=== PATIENT | female | born 1975 | race Caucasian/White ===

== ENCOUNTER 2022-05-23 08:46 | Day surgery (SDC) | payer BC ==
[2022-05-10 15:43] VITALS: BMI 24.3
[2022-05-23] MEDS ORDERED: PROPOFOL 40 ML ONE (11:25)
[2022-05-23] MEDS ORDERED: DEXAMETHASONE SOD PHOSPHATE 4 MG/1 ML VIAL ONE (11:25)
[2022-05-23] MEDS ORDERED: ceFAZolin SODIUM 1 GM VIAL ONE (11:25)
[2022-05-23] MEDS ORDERED: KETOROLAC TROMETHAMINE 30 MG/1 ML VIAL ONE (11:25)
[2022-05-23] MEDS ORDERED: ONDANSETRON 4 MG/2 ML VIAL ONE ×2 (11:25→13:14)
[2022-05-23] MEDS ORDERED: SUCCINYLCHOLINE CHLORIDE 200 MG/10 ML SYRINGE ONE (11:26)
[2022-05-23] MEDS ORDERED: MIDAZOLAM HCL 2 MG/2 ML SINGLE DOSE VIAL ONE (11:26)
[2022-05-23] MEDS ORDERED: ONDANSETRON 4 MG/2 ML VIAL IVPUSH PRN (11:35)
[2022-05-23] MEDS ORDERED: oxyCODONE HCL 5 MG TABLET PO PRN (11:35)
[2022-05-23] MEDS ORDERED: PROMETHAZINE HCL 25 MG/1 ML VIAL IVPUSH PRN (11:35)
[2022-05-23] MEDS ORDERED: BUPIVACAINE HCL/PF 0.25% (2.5MG/ML) 10 ML VIAL ONE (11:44)
[2022-05-23] MEDS ORDERED: TRIAMCINOLONE ACET 40MG/1ML VIAL ONE ×2 (11:44→11:49)
[2022-05-23] MEDS ORDERED: EPINEPHrine 1:1,000 1,000 MCG/ML ML ONE (11:45)
[2022-05-23] MEDS ORDERED: TIZANIDINE HCL 4 MG TABLET PO PRN (12:59)
[2022-05-23] MEDS ORDERED: PATIENT'S OWN MEDICATION (NON-FORMULARY) (Galcanezumab-Gnlm [Emgality Pen] 120 MG/ML Pen.I SQ SCH (13:00)
[2022-05-23] MEDS ORDERED: FENTANYL CITRATE/PF 50 MCG/ML VIAL ONE ×2 (13:00→13:14)
[2022-05-23] MEDS ORDERED: PATIENT'S OWN MEDICATION (NON-FORMULARY) (Rimegepant Sulfate [Nurtec Odt] 75 MG Tab.Rapdis PO SCH (13:00)
[2022-05-23] MEDS ORDERED: METAXALONE 400 MG PO SCH (13:00)
[2022-05-23 13:47] VITALS: TEMP 97
[2022-05-23 14:57] VITALS: BP 126/74; PULSE 72; RESP 18
[2022-05-23] MEDS ORDERED: DILTIAZEM HCL 120 MG PO SCH (22:00)
[2022-05-23] MEDS ORDERED: PATIENT'S OWN MEDICATION (NON-FORMULARY) (Zolpidem Tartrate [Ambien Cr] 12.5 MG Tab.Mphase PO SCH (22:00)
[2022-05-23] MEDS ORDERED: PATIENT'S OWN MEDICATION (NON-FORMULARY) (Clonazepam [Klonopin] 1 MG Tablet) PO SCH (22:00)
[2022-05-24] MEDS ORDERED: PATIENT'S OWN MEDICATION (NON-FORMULARY) (Clonidine Hcl [Clonidine Hcl] 0.2 MG Tablet) PO SCH (10:00)
== END 2022-05-23 15:00 | disposition home or self-care (01) ==
LOC: FASU 08:46
PROVIDERS: ATTEND Orthopaedic Surgery Orthopaedic Surgery of the Spine
PROC: 0SCC4ZZ Extirpation of Matter from Right Knee Joint, Percutaneous Endoscopic Approach (ICD-10-PCS; principal; 2022-05-23 12:26)
DX: M23.41 Loose body in knee, right knee (principal); M65.9 Synovitis and tenosynovitis, unspecified; M94.261 Chondromalacia, right knee
CPT/HCPCS: 84703; 94760

== ENCOUNTER 2023-06-05 09:05 | Day surgery (SDC) | payer BC, OTHER ==
[2023-05-24 16:49] VITALS: BMI 24.5
[2023-06-05] MEDS ORDERED: MIDAZOLAM HCL 2 MG/2 ML SINGLE DOSE VIAL ONE ×3 (10:13→12:36)
[2023-06-05] MEDS ORDERED: PROPOFOL 20 ML ONE ×5 (10:13→14:25)
[2023-06-05] MEDS ORDERED: METAXALONE 400 MG PO PRN (11:19)
[2023-06-05] MEDS ORDERED: BUPIVACAINE HCL/PF 0.5% (5 MG/ML) 30 ML VIAL IJ ONE (11:19)
[2023-06-05] MEDS ORDERED: BUPIVACAINE LIPOSOME/PF (EXPAREL) 266 MG/20 ML VIAL ONE (11:19)
[2023-06-05] MEDS ORDERED: PATIENT'S OWN MEDICATION (NON-FORMULARY) (Tizanidine Hcl [Tizanidine Hcl] 4 MG Tablet) PO PRN (11:19)
[2023-06-05] MEDS ORDERED: PATIENT'S OWN MEDICATION (NON-FORMULARY) (Clonazepam [Klonopin] 1 MG Tablet) PO SCH (11:30)
[2023-06-05] MEDS ORDERED: ZOLPIDEM TARTRATE 5 MG TABLET PO PRN (12:08)
[2023-06-05] MEDS ORDERED: BUPIVACAINE HCL/PF 0.5% (5MG/ML) 10 ML VIAL ONE (12:13)
[2023-06-05] MEDS ORDERED: TRANEXAMIC ACID 1000 MG/10 ML VIAL ONE (13:44)
[2023-06-05] MEDS ORDERED: ceFAZolin SODIUM 1 GM VIAL ONE (14:53)
[2023-06-05] MEDS ORDERED: oxyCODONE HCL 5 MG TABLET PO PRN (15:15)
[2023-06-05] MEDS ORDERED: ONDANSETRON 4 MG/2 ML VIAL IVPUSH PRN ×2 (15:15→15:17)
[2023-06-05] MEDS ORDERED: MAG HYDROX/AL HYDROX/SIMETH 30 ML UNIT-DOSE CUP PO PRN (15:17)
[2023-06-05] MEDS ORDERED: MAGNESIUM HYDROX 2400MG/30ML ORAL SUSPENSION 30 ML CUP PO PRN (15:17)
[2023-06-05] MEDS ORDERED: LACTATED RINGERS SOLUTION 1,000 ML IV SCH (15:30)
[2023-06-05] MEDS: oxyCODONE HCL 5 MG TABLET PO PRN (17:46)
[2023-06-05] MEDS ORDERED: ACETAMINOPHEN 1000 MG/100 ML BAG IVPB ONE (18:00)
[2023-06-05] MEDS: KETOROLAC TROMETHAMINE 30 MG/1 ML VIAL IVPUSH SCH (18:55)
[2023-06-05] MEDS ORDERED: HYDROmorphone HCl 2 MG/ML VIAL IVPB ONE (20:00)
[2023-06-05] MEDS: CEFAZOLIN SODIUM 2 GM in DEXTROSE 5%-WATER 100 ML IVPB SCH (20:29)
[2023-06-05] MEDS: CELECOXIB 200 MG CAPSULE PO SCH (21:15)
[2023-06-05] MEDS: SENNOSIDES/DOCUSATE COMBO (SENNA PLUS) TABLET (UD) PO SCH (21:20)
[2023-06-05] MEDS: ASPIRIN COATED 81 MG TABLET.EC PO SCH (21:24)
[2023-06-05] MEDS: LACTATED RINGERS SOLUTION 1,000 ML IV SCH (21:25)
[2023-06-05] MEDS ORDERED: PATIENT'S OWN MEDICATION (NON-FORMULARY) (Zolpidem Tartrate [Ambien Cr] 12.5 MG Tab.Mphase PO SCH (22:00)
[2023-06-05] MEDS ORDERED: oxyCODONE HCL 10 MG SUSTAINED ACTING TABLET PO SCH (22:00)
[2023-06-06] MEDS: KETOROLAC TROMETHAMINE 30 MG/1 ML VIAL IVPUSH SCH ×3 (00:39→18:46)
[2023-06-06] MEDS: ACETAMINOPHEN 500 MG TABLET (FP) PO SCH ×4 (00:40→22:12)
[2023-06-06] MEDS: oxyCODONE HCL 5 MG TABLET PO PRN ×6 (00:41→20:40)
[2023-06-06] MEDS: CEFAZOLIN SODIUM 2 GM in DEXTROSE 5%-WATER 100 ML IVPB SCH ×2 (01:10→07:58)
[2023-06-06] MEDS ORDERED: clonazePAM 0.5 MG TABLET PO PRN (07:18)
[2023-06-06] MEDS ORDERED: ZOLPIDEM TARTRATE 5 MG TABLET PO PRN ×2 (07:21→07:28)
[2023-06-06] MEDS ORDERED: CYCLOBENZAPRINE HCL 10 MG TABLET (FP) PO PRN (07:41)
[2023-06-06 08:12] LABS: HEMATOCRIT 31.2 % (32.4-45.2); HEMOGLOBIN 10.2 G/dL (10.7-15.3); MCH 31.2 pg (25.7-33.7); MCHC 32.6 g/dl (32.0-36.0); MEAN CELL VOLUME 95.7 fl (80-96); RBC 3.26 10^6/uL (3.60-5.2); RDW 13.8 % (11.6-15.6); WHITE BLOOD COUNT 9.1 10^3/uL (4.0-10.8)
[2023-06-06 08:58] LABS: BLOOD UREA NITROGEN 9.2 mg/dl (7-18); CALCIUM 8.3 mg/dl (8.5-10.1); CREATININE 0.5 mg/dl (0.6-1.3); POTASSIUM 3.8 mmol/L (3.5-5.1)
[2023-06-06] MEDS: SENNOSIDES/DOCUSATE COMBO (SENNA PLUS) TABLET (UD) PO SCH ×2 (09:05→22:13)
[2023-06-06] MEDS: oxyCODONE HCL 10 MG SUSTAINED ACTING TABLET PO SCH ×2 (09:05→22:10)
[2023-06-06] MEDS: PANTOPRAZOLE 40 MG TABLET PO SCH (09:05)
[2023-06-06] MEDS: SERTRALINE HCL 50 MG TABLET (FP) PO SCH (09:06)
[2023-06-06] MEDS: ASPIRIN COATED 81 MG TABLET.EC PO SCH ×2 (09:06→22:10)
[2023-06-06] MEDS: cloNIDine HCL 0.1 MG TABLET PO SCH (11:36)
[2023-06-06] MEDS ORDERED: HYDROmorphone HCL/PF 1 MG/ML VIAL IVPB PRN (12:22)
[2023-06-06] MEDS ORDERED: oxyCODONE HCL 5 MG TABLET PO PRN (12:23)
[2023-06-06] MEDS: LACTATED RINGERS SOLUTION 1,000 ML IV SCH (20:32)
[2023-06-07] MEDS: oxyCODONE HCL 5 MG TABLET PO PRN ×2 (02:32→06:40)
[2023-06-07] MEDS: KETOROLAC TROMETHAMINE 30 MG/1 ML VIAL IVPUSH SCH (02:33)
[2023-06-07 08:27] LABS: MCH 31.6 pg (25.7-33.7); MCHC 33.3 g/dl (32.0-36.0); MEAN CELL VOLUME 94.8 fl (80-96); MEAN PLT VOLUME 9.1 fl (7.5-11.1); PLATELET COUNT 157.8 10^3/uL (134-434); RBC 2.53 10^6/uL (3.60-5.2); RDW 12.9 % (11.6-15.6); WHITE BLOOD COUNT 7.9 10^3/uL (4.0-10.8)
[2023-06-07 09:22] LABS: BLOOD UREA NITROGEN 14.6 mg/dl (7-18); CREATININE 0.6 mg/dl (0.6-1.3); POTASSIUM 3.7 mmol/L (3.5-5.1)
[2023-06-07] MEDS: SENNOSIDES/DOCUSATE COMBO (SENNA PLUS) TABLET (UD) PO SCH ×2 (09:22→21:50)
[2023-06-07] MEDS: CELECOXIB 200 MG CAPSULE PO SCH ×2 (09:22→21:51)
[2023-06-07] MEDS: PANTOPRAZOLE 40 MG TABLET PO SCH (09:23)
[2023-06-07] MEDS: SERTRALINE HCL 50 MG TABLET (FP) PO SCH (09:23)
[2023-06-07] MEDS: ASPIRIN COATED 81 MG TABLET.EC PO SCH ×2 (09:23→21:50)
[2023-06-07] MEDS: ACETAMINOPHEN 325 MG TABLET (FP) PO SCH ×3 (09:30→21:50)
[2023-06-07] MEDS: cloNIDine HCL 0.1 MG TABLET PO SCH (09:51)
[2023-06-07] MEDS ORDERED: RIMEGEPANT SULFATE 75 MG TAB.RAPDIS SL SCH (10:00)
[2023-06-07] MEDS: HYDROmorphone HCL 2 MG TABLET PO PRN ×2 (13:02→21:51)
[2023-06-07] MEDS ORDERED: DEXAMETHASONE 4 MG TABLET (FP) PO SCH (23:00)
[2023-06-08] MEDS: ACETAMINOPHEN 325 MG TABLET (FP) PO SCH ×2 (04:33→09:37)
[2023-06-08 06:10] VITALS: BP 122/65; TEMP 98.3
[2023-06-08] MEDS: HYDROmorphone HCL 2 MG TABLET PO PRN ×2 (06:13→12:00)
[2023-06-08 06:34] VITALS: PULSE 74; RESP 16
[2023-06-08 09:23] LABS: HEMATOCRIT 21.7 % (32.4-45.2); HEMOGLOBIN 7.4 G/dL (10.7-15.3); MCH 32.2 pg (25.7-33.7); MEAN CELL VOLUME 94.9 fl (80-96); MEAN PLT VOLUME 9.5 fl (7.5-11.1); PLATELET COUNT 139.8 10^3/uL (134-434); RBC 2.29 10^6/uL (3.60-5.2); RDW 13.5 % (11.6-15.6); WHITE BLOOD COUNT 5.4 10^3/uL (4.0-10.8)
[2023-06-08] MEDS: ASPIRIN COATED 81 MG TABLET.EC PO SCH (09:39)
[2023-06-08] MEDS: SENNOSIDES/DOCUSATE COMBO (SENNA PLUS) TABLET (UD) PO SCH (09:39)
[2023-06-08] MEDS: SERTRALINE HCL 50 MG TABLET (FP) PO SCH (09:39)
[2023-06-08] MEDS: CELECOXIB 200 MG CAPSULE PO SCH (09:39)
[2023-06-08] MEDS: PANTOPRAZOLE 40 MG TABLET PO SCH (09:39)
[2023-06-08] MEDS: cloNIDine HCL 0.1 MG TABLET PO SCH (09:40)
[2023-06-08 09:44] LABS: BLOOD UREA NITROGEN 12.8 mg/dl (7-18); CREATININE 0.4 mg/dl (0.6-1.3); POTASSIUM 3.8 mmol/L (3.5-5.1)
[2023-06-10] MEDS ORDERED: PATIENT'S OWN MEDICATION (NON-FORMULARY) (Galcanezumab-Gnlm [Emgality Pen] 120 MG/ML Pen.I SQ SCH (10:00)
== END 2023-06-08 14:06 | disposition home or self-care (01) ==
LOC: FASU 09:05 → FASUSAT 09:05 → FM/S 16:57 → FASUSAT 06-08 14:06
PROVIDERS: ATTEND Orthopaedic Surgery Orthopaedic Surgery of the Spine
PROC: 0MNN0ZZ Release Right Knee Bursa and Ligament, Open Approach (ICD-10-PCS; 2023-06-05)
PROC: 0SBC0ZX Excision of Right Knee Joint, Open Approach, Diagnostic (ICD-10-PCS; 2023-06-05)
PROC: 0SRC0J9 Replacement of Right Knee Joint with Synthetic Substitute, Cemented, Open Approach (ICD-10-PCS; principal; 2023-06-05 12:45)
DX: M17.11 Unilateral primary osteoarthritis, right knee (principal); M17.31 Unilateral post-traumatic osteoarthritis, right knee
CPT/HCPCS: 27330; 27425; 27447; C1776; 36415; 73560-TC-RT-FY; 80048; 81025; 85027; 88305-TC; 88311-TC; 94760; 97010-GP; 97116-GP; 97162-GP; C1713; C1889

== ENCOUNTER 2023-06-14 15:43 | Inpatient (IN) | payer BC, OTHER ==
[2023-06-14] MEDS ORDERED: ACETAMINOPHEN 1000 MG/100 ML BAG IVPB ONE ×2 (16:10→18:53)
[2023-06-14 16:22] VITALS: BMI 24.3
[2023-06-14] MEDS ORDERED: ACETAMINOPHEN INJECTION 100 ML IVPB ONE (16:23)
[2023-06-14] MEDS ORDERED: MIDAZOLAM HCL 2 MG/2 ML SINGLE DOSE VIAL ONE (16:29)
[2023-06-14] MEDS ORDERED: PROPOFOL 20 ML ONE ×2 (16:29→17:09)
[2023-06-14] MEDS ORDERED: LIDOCAINE HCL/PF 2% SDV 5ML VIAL ONE (16:29)
[2023-06-14 16:42] LABS: HEMATOCRIT 30.7 % (32.4-45.2); HEMOGLOBIN 9.9 G/dL (10.7-15.3); MCHC 32.2 g/dl (32.0-36.0); MEAN CELL VOLUME 96.2 fl (80-96); MEAN PLT VOLUME 8.3 fl (7.5-11.1); PLATELET COUNT 436.9 10^3/uL (134-434); RBC 3.19 10^6/uL (3.60-5.2); RDW 14.4 % (11.6-15.6); WHITE BLOOD COUNT 15.1 10^3/uL (4.0-10.8)
[2023-06-14] MEDS ORDERED: DEXAMETHASONE SOD PHOSPHATE 4 MG/1 ML VIAL ONE (17:05)
[2023-06-14] MEDS ORDERED: VANCOMYCIN 1,000 MG VIAL (RESTRICTED TO ID ONLY) ONE (17:05)
[2023-06-14] MEDS ORDERED: ceFAZolin SODIUM 1 GM VIAL ONE (17:05)
[2023-06-14] MEDS ORDERED: HYDROmorphone HCL/PF 1 MG/ML VIAL ONE ×3 (17:35→19:04)
[2023-06-14] MEDS ORDERED: PROMETHAZINE HCL 25 MG/1 ML VIAL IVPB PRN (18:53)
[2023-06-14] MEDS ORDERED: ONDANSETRON 4 MG/2 ML VIAL IVPUSH PRN (18:53)
[2023-06-14] MEDS: HYDROmorphone HCl 2 MG/ML VIAL IVPUSH PRN ×4 (19:00→19:45)
[2023-06-14] MEDS ORDERED: ACETAMINOPHEN 1000 MG/100 ML BAG IVPB PRN (19:02)
[2023-06-14] MEDS ORDERED: DOCUSATE SODIUM 100 MG CAPSULE (FP) PO PRN (19:02)
[2023-06-14] MEDS: LACTATED RINGERS SOLUTION 1,000 ML IV SCH (19:15)
[2023-06-14] MEDS ORDERED: oxyCODONE HCL 5 MG TABLET PO PRN ×2 (19:16→21:45)
[2023-06-14] MEDS: clonazePAM 2 MG TABLET PO SCH (19:30)
[2023-06-14] MEDS: DOCUSATE SODIUM 100 MG CAPSULE (FP) PO SCH (21:30)
[2023-06-15] MEDS: CEFAZOLIN 1 GM in DEXTROSE 5%-WATER - 50 ML IVPB SCH ×2 (01:29→09:26)
[2023-06-15] MEDS ORDERED: KETOROLAC TROMETHAMINE 30 MG/1 ML VIAL IVPUSH SCH (02:00)
[2023-06-15] MEDS ORDERED: MELATONIN 1 MG TABLET PO ONE (04:30)
[2023-06-15] MEDS ORDERED: HYDROmorphone HCl 2 MG/ML VIAL IVPUSH ONE (04:30)
[2023-06-15] MEDS: DOCUSATE SODIUM 100 MG CAPSULE (FP) PO SCH ×3 (06:14→21:08)
[2023-06-15] MEDS: clonazePAM 2 MG TABLET PO SCH ×2 (06:14→14:18)
[2023-06-15] MEDS ORDERED: VANCOMYCIN/WATER FOR INJ (PEG) 1,000 MG/200 ML BAG IVPB ONE (08:00)
[2023-06-15 08:50] LABS: HEMATOCRIT 29.7 % (32.4-45.2); HEMOGLOBIN 9.6 G/dL (10.7-15.3); MCH 30.9 pg (25.7-33.7); MCHC 32.4 g/dl (32.0-36.0); MEAN CELL VOLUME 95.6 fl (80-96); MEAN PLT VOLUME 8.9 fl (7.5-11.1); PLATELET COUNT 466.9 10^3/uL (134-434); RBC 3.11 10^6/uL (3.60-5.2); RDW 13.9 % (11.6-15.6); WHITE BLOOD COUNT 18.1 10^3/uL (4.0-10.8)
[2023-06-15 08:53] LABS: ALBUMIN 3.9 g/dl (3.4-5.0); BLOOD UREA NITROGEN 9.2 mg/dl (7-18); CALCIUM 9.5 mg/dl (8.5-10.1); CREATININE 0.5 mg/dl (0.6-1.3); POTASSIUM 4.2 mmol/L (3.5-5.1); TOT PROT 6.4 g/dl (6.4-8.2)
[2023-06-15] MEDS ORDERED: ZOLPIDEM TARTRATE 5 MG TABLET PO PRN ×2 (08:58→22:00)
[2023-06-15] MEDS ORDERED: oxyCODONE HCL 5 MG TABLET PO PRN (09:28)
[2023-06-15] MEDS ORDERED: HYDROmorphone HCl 2 MG/ML VIAL IVPB PRN (09:41)
[2023-06-15] MEDS ORDERED: NALOXONE HCL 0.4 MG/ML VIAL IVPUSH PRN (09:43)
[2023-06-15] MEDS ORDERED: SIMETHICONE 80 MG TAB.CHEW (FP) PO PRN (09:45)
[2023-06-15] MEDS ORDERED: SERTRALINE HCL 50 MG TABLET (FP) PO SCH (10:00)
[2023-06-15] MEDS: POLYETHYLENE GLYCOL (HEALTHYLAX) 3350 17 GM PACKET PO SCH ×3 (10:32→21:05)
[2023-06-15] MEDS: GABAPENTIN 300 MG CAPSULE PO SCH ×2 (10:33→21:06)
[2023-06-15] MEDS: PANTOPRAZOLE 40 MG TABLET PO SCH (10:33)
[2023-06-15] MEDS: cloNIDine HCL 0.1 MG TABLET PO SCH ×3 (10:33→23:28)
[2023-06-15 10:46] LABS: BILIRUBIN,TOTAL 0.9 mg/dL (0.2-1)
[2023-06-15] MEDS ORDERED: PATIENT'S OWN MEDICATION (NON-FORMULARY) (Tizanidine Hcl [Tizanidine Hcl] 4 MG Tablet) PO PRN (10:48)
[2023-06-15] MEDS ORDERED: ONDANSETRON 4 MG/2 ML VIAL IVPUSH PRN (10:49)
[2023-06-15] MEDS ORDERED: MAG HYDROX/AL HYDROX/SIMETH 30 ML UNIT-DOSE CUP PO PRN (10:49)
[2023-06-15] MEDS ORDERED: MAGNESIUM HYDROX 2400MG/30ML ORAL SUSPENSION 30 ML CUP PO PRN (10:49)
[2023-06-15] MEDS ORDERED: CEFAZOLIN 2 GM in DEXTROSE 5%-WATER - 50 ML IVPB SCH ×2 (11:00→16:00)
[2023-06-15] MEDS: CELECOXIB 200 MG CAPSULE PO SCH ×2 (12:14→21:07)
[2023-06-15] MEDS: RIMEGEPANT SULFATE 75 MG TAB.RAPDIS SL SCH (12:14)
[2023-06-15] MEDS: ACETAMINOPHEN 500 MG TABLET (FP) PO SCH ×2 (12:14→23:26)
[2023-06-15] MEDS ORDERED: SENNOSIDES 8.6MG TABLET (FP) PO SCH (14:00)
[2023-06-15] MEDS: clonazePAM 0.5 MG TABLET PO SCH ×2 (16:19→21:07)
[2023-06-15] MEDS: PIPERACILLIN/TAZOB 4.5 GM 4.5 GM in DEXTROSE 5%-WATER 100 ML IVPB SCH (18:12)
[2023-06-15] MEDS: SERTRALINE HCL 25 MG TABLET (FP) PO SCH (21:06)
[2023-06-15] MEDS: SENNOSIDES/DOCUSATE COMBO (SENNA PLUS) TABLET (UD) PO SCH (21:07)
[2023-06-15] MEDS: ASPIRIN COATED 81 MG TABLET.EC PO SCH (21:29)
[2023-06-15] MEDS: HYDROmorphone HCl 2 MG/ML VIAL IVPB PRN (21:29)
[2023-06-15] MEDS: LACTATED RINGERS SOLUTION 1,000 ML IV SCH (21:31)
[2023-06-15] MEDS ORDERED: CELECOXIB 200 MG CAPSULE PO SCH (22:00)
[2023-06-15] MEDS: ZOLPIDEM TARTRATE 5 MG TABLET PO PRN (23:57)
[2023-06-16] MEDS: PIPERACILLIN/TAZOB 4.5 GM 4.5 GM in DEXTROSE 5%-WATER 100 ML IVPB SCH ×3 (01:52→18:22)
[2023-06-16] MEDS: POLYETHYLENE GLYCOL (HEALTHYLAX) 3350 17 GM PACKET PO SCH ×3 (05:24→22:17)
[2023-06-16] MEDS: DOCUSATE SODIUM 100 MG CAPSULE (FP) PO SCH ×3 (05:24→23:00)
[2023-06-16] MEDS: HYDROmorphone HCl 2 MG/ML VIAL IVPB PRN ×4 (05:24→22:17)
[2023-06-16] MEDS: clonazePAM 0.5 MG TABLET PO SCH ×3 (05:24→22:12)
[2023-06-16] MEDS: SERTRALINE HCL 25 MG TABLET (FP) PO SCH ×2 (09:12→22:14)
[2023-06-16] MEDS: cloNIDine HCL 0.1 MG TABLET PO SCH ×2 (09:13→23:15)
[2023-06-16] MEDS: PANTOPRAZOLE 40 MG TABLET PO SCH (09:13)
[2023-06-16] MEDS: CELECOXIB 200 MG CAPSULE PO SCH ×2 (09:14→22:13)
[2023-06-16] MEDS: GABAPENTIN 300 MG CAPSULE PO SCH ×2 (09:16→22:13)
[2023-06-16] MEDS: ASPIRIN COATED 81 MG TABLET.EC PO SCH ×2 (09:16→22:17)
[2023-06-16] MEDS: LACTATED RINGERS SOLUTION 1,000 ML IV SCH (09:44)
[2023-06-16 09:51] LABS: ALBUMIN 3.3 g/dl (3.4-5.0); CALCIUM 8.8 mg/dl (8.5-10.1); CREATININE 0.5 mg/dl (0.6-1.3); POTASSIUM 4.4 mmol/L (3.5-5.1); SGOT/AST 12.6 U/L (15-37); SGPT/ALT 6.2 U/L (7-52); TOT PROT 5.4 g/dl (6.4-8.2)
[2023-06-16 10:19] LABS: BASO % 0.7 % (0-2.0); EOS % 2.9 % (0-4.5); HEMATOCRIT 26.3 % (32.4-45.2); HEMOGLOBIN 8.7 GM/dL (10.7-15.3); LYMPH % 31.6 % (8-40); MCH 30.4 pg (25.7-33.7); MCHC 33.1 g/dl (32.0-36.0); MEAN CELL VOLUME 91.8 fl (80-96); MEAN PLT VOLUME 8.4 fl (7.5-11.1); NEUT % 52.8 % (42.8-82.8); PLATELET COUNT 339 10^3/uL (134-434); RBC 2.86 M/mm3 (3.60-5.2); WHITE BLOOD COUNT 7.9 K/mm3 (4.0-10.0)
[2023-06-16 10:24] LABS: BILIRUBIN,TOTAL 0.8 mg/dL (0.2-1)
[2023-06-16] MEDS: SENNOSIDES/DOCUSATE COMBO (SENNA PLUS) TABLET (UD) PO SCH ×2 (11:22→22:16)
[2023-06-16] MEDS: ACETAMINOPHEN 500 MG TABLET (FP) PO SCH ×2 (11:41→23:04)
[2023-06-16] MEDS: RIMEGEPANT SULFATE 75 MG TAB.RAPDIS SL SCH (13:13)
[2023-06-16] MEDS: KETOROLAC TROMETHAMINE 30 MG/1 ML VIAL IVPUSH PRN (13:13)
[2023-06-16] MEDS: ZOLPIDEM TARTRATE 5 MG TABLET PO PRN (22:16)
[2023-06-17] MEDS: PIPERACILLIN/TAZOB 4.5 GM 4.5 GM in DEXTROSE 5%-WATER 100 ML IVPB SCH ×3 (01:46→20:38)
[2023-06-17] MEDS: clonazePAM 0.5 MG TABLET PO SCH ×3 (05:01→21:23)
[2023-06-17] MEDS: HYDROmorphone HCl 2 MG/ML VIAL IVPB PRN (05:01)
[2023-06-17] MEDS: DOCUSATE SODIUM 100 MG CAPSULE (FP) PO SCH ×3 (05:19→21:25)
[2023-06-17] MEDS: POLYETHYLENE GLYCOL (HEALTHYLAX) 3350 17 GM PACKET PO SCH ×3 (05:19→21:20)
[2023-06-17] MEDS ORDERED: HYDROmorphone HCl 2 MG/ML VIAL IVPB PRN (09:29)
[2023-06-17 09:34] LABS: HEMATOCRIT 24.8 % (32.4-45.2); HEMOGLOBIN 8.1 G/dL (10.7-15.3); MCH 31.6 pg (25.7-33.7); MCHC 32.6 g/dl (32.0-36.0); MEAN CELL VOLUME 96.8 fl (80-96); MEAN PLT VOLUME 8.7 fl (7.5-11.1); PLATELET COUNT 319.8 10^3/uL (134-434); RBC 2.56 10^6/uL (3.60-5.2); RDW 14.9 % (11.6-15.6); WHITE BLOOD COUNT 7.3 10^3/uL (4.0-10.8)
[2023-06-17] MEDS: RIMEGEPANT SULFATE 75 MG TAB.RAPDIS SL SCH ×2 (09:44→11:12)
[2023-06-17] MEDS: CELECOXIB 200 MG CAPSULE PO SCH ×2 (09:45→21:22)
[2023-06-17] MEDS: GABAPENTIN 300 MG CAPSULE PO SCH ×2 (09:45→21:23)
[2023-06-17] MEDS: PANTOPRAZOLE 40 MG TABLET PO SCH (09:45)
[2023-06-17] MEDS: SENNOSIDES/DOCUSATE COMBO (SENNA PLUS) TABLET (UD) PO SCH ×2 (09:46→21:20)
[2023-06-17] MEDS: KETOROLAC TROMETHAMINE 30 MG/1 ML VIAL IVPUSH PRN ×2 (09:46→18:00)
[2023-06-17] MEDS: ASPIRIN COATED 81 MG TABLET.EC PO SCH ×2 (09:46→21:23)
[2023-06-17] MEDS: ACETAMINOPHEN 500 MG TABLET (FP) PO SCH ×2 (11:08→22:43)
[2023-06-17] MEDS: oxyCODONE HCL 5 MG TABLET PO PRN ×3 (11:08→21:21)
[2023-06-17] MEDS: SERTRALINE HCL 25 MG TABLET (FP) PO SCH ×2 (11:13→21:29)
[2023-06-17] MEDS: cloNIDine HCL 0.1 MG TABLET PO SCH ×2 (11:14→21:24)
[2023-06-17] MEDS: LACTATED RINGERS SOLUTION 1,000 ML IV SCH (20:06)
[2023-06-17] MEDS: ZOLPIDEM TARTRATE 5 MG TABLET PO PRN (21:25)
[2023-06-18] MEDS: PIPERACILLIN/TAZOB 4.5 GM 4.5 GM in DEXTROSE 5%-WATER 100 ML IVPB SCH ×2 (01:31→09:43)
[2023-06-18] MEDS: oxyCODONE HCL 5 MG TABLET PO PRN ×4 (01:49→16:42)
[2023-06-18 01:50] VITALS: RESP 18
[2023-06-18] MEDS: POLYETHYLENE GLYCOL (HEALTHYLAX) 3350 17 GM PACKET PO SCH ×2 (06:23→13:35)
[2023-06-18] MEDS: DOCUSATE SODIUM 100 MG CAPSULE (FP) PO SCH ×2 (06:23→13:36)
[2023-06-18] MEDS: clonazePAM 0.5 MG TABLET PO SCH ×2 (06:23→13:36)
[2023-06-18 08:11] LABS: ALBUMIN 2.9 g/dl (3.4-5.0); BLOOD UREA NITROGEN 10.7 mg/dl (7-18); CALCIUM 8.3 mg/dl (8.5-10.1); CREATININE 0.6 mg/dl (0.6-1.3); POTASSIUM 4.3 mmol/L (3.5-5.1); SGOT/AST 13.7 U/L (15-37); SGPT/ALT 6.4 U/L (7-52); TOT PROT 4.6 g/dl (6.4-8.2)
[2023-06-18] MEDS: PANTOPRAZOLE 40 MG TABLET PO SCH (09:41)
[2023-06-18] MEDS: cloNIDine HCL 0.1 MG TABLET PO SCH (09:41)
[2023-06-18] MEDS: CELECOXIB 200 MG CAPSULE PO SCH (09:41)
[2023-06-18] MEDS: ASPIRIN COATED 81 MG TABLET.EC PO SCH (09:42)
[2023-06-18] MEDS: GABAPENTIN 300 MG CAPSULE PO SCH (09:42)
[2023-06-18] MEDS: SENNOSIDES/DOCUSATE COMBO (SENNA PLUS) TABLET (UD) PO SCH (09:47)
[2023-06-18] MEDS ORDERED: SERTRALINE HCL 50 MG TABLET (FP) PO SCH (10:00)
[2023-06-18 10:25] LABS: BILIRUBIN,TOTAL 0.4 mg/dL (0.2-1)
[2023-06-18] MEDS: RIMEGEPANT SULFATE 75 MG TAB.RAPDIS SL SCH (11:00)
[2023-06-18] MEDS: ACETAMINOPHEN 500 MG TABLET (FP) PO SCH (11:02)
[2023-06-18 11:28] LABS: BASO % 1.8 % (0-2.0); EOS % 6.6 % (0-4.5); HEMATOCRIT 22.8 % (32.4-45.2); HEMOGLOBIN 7.6 GM/dL (10.7-15.3); LYMPH % 27.5 % (8-40); MCH 30.8 pg (25.7-33.7); MCHC 33.4 g/dl (32.0-36.0); MEAN CELL VOLUME 92.2 fl (80-96); MEAN PLT VOLUME 8.2 fl (7.5-11.1); MONO % 11.3 % (3.8-10.2); NEUT % 52.8 % (42.8-82.8); PLATELET COUNT 294 10^3/uL (134-434); RBC 2.48 M/mm3 (3.60-5.2); RDW 13.3 % (11.6-15.6)
[2023-06-18] MEDS: KETOROLAC TROMETHAMINE 30 MG/1 ML VIAL IVPUSH PRN (14:04)
[2023-06-18 14:45] VITALS: BP 112/58; PULSE 78; TEMP 98.3
== END 2023-06-18 16:58 | disposition home or self-care (01) | DRG 909 ==
LOC: FER 15:43 → FASU 16:34 → FM/S 20:04 → FASU 06-15 12:07 → FM/S 06-15 12:11
PROVIDERS: ADMIT Orthopaedic Surgery Orthopaedic Surgery of the Spine; ATTEND Internal Medicine
PROC: 0SCC0ZZ Extirpation of Matter from Right Knee Joint, Open Approach (ICD-10-PCS; principal; 2023-06-15)
PROC: 3E10X8Z Irrigation of Skin and Mucous Membranes using Irrigating Substance (ICD-10-PCS; 2023-06-15)
PROC: 2W3QXYZ Immobilization of Right Lower Leg using Other Device (ICD-10-PCS; 2023-06-15)
DX: M96.840 Postprocedural hematoma of a musculoskeletal structure following a musculoskeletal system procedure (principal); I10 Essential (primary) hypertension; F41.8 Other specified anxiety disorders; G47.09 Other insomnia; G43.809 Other migraine, not intractable, without status migrainosus; Y83.8 Other surgical procedures as the cause of abnormal reaction of the patient, or of later complication, without mention of misadventure at the time of the procedure
CPT/HCPCS: 36415; 80053; 84703; 85025; 85027; 86850; 86900; 86901; 94760; 97116-GP; 99285-25

== ENCOUNTER 2023-07-09 19:43 | Inpatient (IN) | payer BC, OTHER ==
[2023-07-09 21:02] LABS: HEMATOCRIT 37.3 % (32.4-45.2); HEMOGLOBIN 11.6 G/dL (10.7-15.3); MCH 28.1 pg (25.7-33.7); MCHC 31.1 g/dl (32.0-36.0); MEAN CELL VOLUME 90.2 fl (80-96); MEAN PLT VOLUME 9.1 fl (7.5-11.1); RBC 4.13 10^6/uL (3.60-5.2); RDW 14.3 % (11.6-15.6); WHITE BLOOD COUNT 16.4 10^3/uL (4.0-10.8)
[2023-07-09 21:13] LABS: INR 1.21 (0.83-1.09)
[2023-07-09 21:15] VITALS: BMI 23.8
[2023-07-09 21:23] LABS: ALBUMIN 4.1 g/dl (3.4-5.0); BILIRUBIN,TOTAL 0.4 mg/dl (0.2-1); BLOOD UREA NITROGEN 19.4 mg/dl (7-18); CREATININE 0.7 mg/dl (0.6-1.3); POTASSIUM 3.8 mmol/L (3.5-5.1); SGOT/AST 12.3 U/L (15-37); SGPT/ALT 6.8 U/L (7-52); TOT PROT 5.9 g/dl (6.4-8.2)
[2023-07-09 21:32] LABS: HCG,QUALITATIVE URINE Negative
[2023-07-09 21:48] LABS: ERYTHROCYTE SEDIMENTATION RATE 4 mm/hr (0-20)
[2023-07-09] MEDS ORDERED: SODIUM CHLORIDE 1,000 ML IV ONE (22:24)
[2023-07-09 22:31] LABS: EPITHELIAL CELLS FEW /hpf; URIC ACID CRYSTALS FEW /hpf (NONE SEEN)
[2023-07-09] MEDS ORDERED: morphine CARPU-JECT 2 MG/1 ML DISP.SYRIN IVPUSH ONE (22:34)
[2023-07-09] MEDS ORDERED: PIPERACILLIN/TAZOB 4.5 GM 4.5 GM in DEXTROSE 5%-WATER 100 ML IVPB ONE (23:27)
[2023-07-09] MEDS ORDERED: PIPERACILLIN/TAZOBACTAM 4.5 GM VIAL IVPB ONE (23:31)
[2023-07-10] MEDS ORDERED: DEXTROSE 5%-0.45% SALINE 1,000 ML IV SCH
[2023-07-10 08:26] LABS: BLOOD UREA NITROGEN 18.5 mg/dl (7-18); CALCIUM 8.3 mg/dl (8.5-10.1); CREATININE 0.7 mg/dl (0.6-1.3); POTASSIUM 4.1 mmol/L (3.5-5.1)
[2023-07-10] MEDS: PIPERACILLIN/TAZOB 4.5 GM 4.5 GM in DEXTROSE 5%-WATER 100 ML IVPB SCH ×2 (09:37→18:04)
[2023-07-10 09:55] LABS: BASO % 1.3 % (0-2.0); EOS % 2.7 % (0-4.5); HEMATOCRIT 28.6 % (32.4-45.2); HEMOGLOBIN 9.6 GM/dL (10.7-15.3); LYMPH % 19.7 % (8-40); MCH 29.1 pg (25.7-33.7); MCHC 33.5 g/dl (32.0-36.0); MEAN PLT VOLUME 9.6 fl (7.5-11.1); MONO % 7.5 % (3.8-10.2); NEUT % 68.8 % (42.8-82.8); PLATELET COUNT 256 10^3/uL (134-434); RBC 3.29 M/mm3 (3.60-5.2); RDW 13.1 % (11.6-15.6); WHITE BLOOD COUNT 6.4 K/mm3 (4.0-10.0)
[2023-07-10 11:49] LABS: ERYTHROCYTE SEDIMENTATION RATE 9 mm/hr (0-20)
[2023-07-10] MEDS ORDERED: BUPIVACAINE LIPOSOME/PF (EXPAREL) 266 MG/20 ML VIAL ONE (12:26)
[2023-07-10] MEDS ORDERED: BUPIVACAINE HCL/PF 0.5% (5 MG/ML) 30 ML VIAL IJ ONE (12:26)
[2023-07-10] MEDS ORDERED: MIDAZOLAM HCL 2 MG/2 ML SINGLE DOSE VIAL ONE (12:26)
[2023-07-10] MEDS ORDERED: ACETAMINOPHEN INJECTION 100 ML IVPB ONE (12:27)
[2023-07-10] MEDS ORDERED: ONDANSETRON 4 MG/2 ML VIAL IVPUSH PRN ×2 (12:33→16:12)
[2023-07-10] MEDS ORDERED: oxyCODONE HCL 5 MG TABLET PO PRN (12:33)
[2023-07-10] MEDS ORDERED: KETAMINE HCL 500 MG/10 ML VIAL ONE (12:36)
[2023-07-10] MEDS ORDERED: LACTATED RINGERS SOLUTION 1,000 ML IV SCH ×2 (12:45→16:15)
[2023-07-10] MEDS ORDERED: BUPIVACAINE HCL/PF 0.5% (5MG/ML) 10 ML VIAL ONE (12:48)
[2023-07-10] MEDS ORDERED: DEXAMETHASONE SOD PHOSPHATE 4 MG/1 ML VIAL ONE (12:53)
[2023-07-10] MEDS ORDERED: PROPOFOL 40 ML ONE ×2 (12:53→14:04)
[2023-07-10] MEDS ORDERED: KETOROLAC TROMETHAMINE 30 MG/1 ML VIAL ONE (12:53)
[2023-07-10] MEDS ORDERED: TRANEXAMIC ACID 1000 MG/10 ML VIAL ONE ×2 (12:53→14:40)
[2023-07-10] MEDS ORDERED: ceFAZolin SODIUM 1 GM VIAL ONE (12:53)
[2023-07-10] MEDS ORDERED: VANCOMYCIN 1,000 MG VIAL (RESTRICTED TO ID ONLY) ONE (12:53)
[2023-07-10] MEDS ORDERED: PROPOFOL 20 ML ONE ×2 (14:55→15:32)
[2023-07-10] MEDS ORDERED: MAG HYDROX/AL HYDROX/SIMETH 30 ML UNIT-DOSE CUP PO PRN (16:12)
[2023-07-10] MEDS ORDERED: MAGNESIUM HYDROX 2400MG/30ML ORAL SUSPENSION 30 ML CUP PO PRN (16:12)
[2023-07-10] MEDS ORDERED: HYDROmorphone *PCA* 10MG/50ML DISP.SYRIN PCA SCH (16:15)
[2023-07-10] MEDS ORDERED: CEFAZOLIN SODIUM 2 GM in DEXTROSE 5%-WATER 100 ML IVPB SCH (21:00)
[2023-07-10] MEDS: ASPIRIN COATED 81 MG TABLET.EC PO SCH (21:04)
[2023-07-10] MEDS: GABAPENTIN 300 MG CAPSULE PO SCH (21:04)
[2023-07-10] MEDS: SENNOSIDES/DOCUSATE COMBO (SENNA PLUS) TABLET (UD) PO SCH (21:05)
[2023-07-10] MEDS ORDERED: KETOROLAC TROMETHAMINE 30 MG/1 ML VIAL IVPUSH ONE (22:00)
[2023-07-10] MEDS ORDERED: CELECOXIB 200 MG CAPSULE PO SCH (22:00)
[2023-07-11] MEDS: ACETAMINOPHEN 1000 MG/100 ML BAG IVPB PRN ×3 (06:00→11:56)
[2023-07-11] MEDS ORDERED: clonazePAM 2 MG TABLET PO ONE (09:21)
[2023-07-11] MEDS ORDERED: RIMEGEPANT SULFATE 75 MG TAB.RAPDIS SL ONE (09:25)
[2023-07-11 09:42] LABS: ALBUMIN 3.4 g/dl (3.4-5.0); BILIRUBIN,TOTAL 0.3 mg/dl (0.2-1); BLOOD UREA NITROGEN 13.8 mg/dl (7-18); CALCIUM 8.5 mg/dl (8.5-10.1); CREATININE 0.5 mg/dl (0.6-1.3); POTASSIUM 4.3 mmol/L (3.5-5.1); SGOT/AST 23.6 U/L (15-37); SGPT/ALT 12.8 U/L (7-52); TOT PROT 5.3 g/dl (6.4-8.2)
[2023-07-11] MEDS: oxyCODONE HCL 5 MG TABLET PO PRN ×4 (10:15→23:49)
[2023-07-11] MEDS: GABAPENTIN 300 MG CAPSULE PO SCH ×2 (10:15→21:08)
[2023-07-11] MEDS: PANTOPRAZOLE 40 MG TABLET PO SCH (10:15)
[2023-07-11] MEDS: CELECOXIB 200 MG CAPSULE PO SCH ×2 (10:15→21:07)
[2023-07-11] MEDS: ASPIRIN COATED 81 MG TABLET.EC PO SCH ×2 (10:15→21:07)
[2023-07-11] MEDS: SENNOSIDES/DOCUSATE COMBO (SENNA PLUS) TABLET (UD) PO SCH ×2 (10:16→21:07)
[2023-07-11 11:36] LABS: BASO % 0.4 % (0-2.0); EOS % 0.3 % (0-4.5); HEMATOCRIT 28.3 % (32.4-45.2); HEMOGLOBIN 9.6 GM/dL (10.7-15.3); LYMPH % 15.2 % (8-40); MCH 29.6 pg (25.7-33.7); MEAN CELL VOLUME 86.9 fl (80-96); MEAN PLT VOLUME 9.6 fl (7.5-11.1); MONO % 8.4 % (3.8-10.2); NEUT % 75.7 % (42.8-82.8); PLATELET COUNT 284 10^3/uL (134-434); RBC 3.25 M/mm3 (3.60-5.2); RDW 13.1 % (11.6-15.6); WHITE BLOOD COUNT 9.8 K/mm3 (4.0-10.0)
[2023-07-11] MEDS: CEFAZOLIN SODIUM 2 GM in DEXTROSE 5%-WATER 100 ML IVPB SCH ×2 (15:57→23:49)
[2023-07-11] MEDS ORDERED: diphenhydrAMINE HCL 25 MG CAPSULE (FP) PO ONE (20:28)
[2023-07-12] MEDS: ZOLPIDEM TARTRATE 5 MG TABLET PO PRN ×2 (00:05→21:45)
[2023-07-12] MEDS: oxyCODONE HCL 5 MG TABLET PO PRN ×4 (05:59→21:12)
[2023-07-12] MEDS: CEFAZOLIN SODIUM 2 GM in DEXTROSE 5%-WATER 100 ML IVPB SCH ×2 (08:15→15:40)
[2023-07-12] MEDS: PANTOPRAZOLE 40 MG TABLET PO SCH (09:09)
[2023-07-12] MEDS: GABAPENTIN 300 MG CAPSULE PO SCH ×2 (09:10→21:13)
[2023-07-12] MEDS: CELECOXIB 200 MG CAPSULE PO SCH ×2 (09:10→21:45)
[2023-07-12] MEDS: ASPIRIN COATED 81 MG TABLET.EC PO SCH ×2 (09:10→21:45)
[2023-07-12] MEDS: SENNOSIDES/DOCUSATE COMBO (SENNA PLUS) TABLET (UD) PO SCH ×2 (09:10→21:13)
[2023-07-12 09:11] LABS: ALBUMIN 3.3 g/dl (3.4-5.0); BILIRUBIN,TOTAL 0.3 mg/dl (0.2-1); BLOOD UREA NITROGEN 7.2 mg/dl (7-18); CALCIUM 8.4 mg/dl (8.5-10.1); CREATININE 0.6 mg/dl (0.6-1.3); POTASSIUM 4.3 mmol/L (3.5-5.1); SGOT/AST 18.4 U/L (15-37); SGPT/ALT 8.9 U/L (7-52); TOT PROT 5.2 g/dl (6.4-8.2)
[2023-07-12] MEDS ORDERED: SODIUM CHLORIDE 0.9% 1000 ML INFUS.BAG IV ONE (10:20)
[2023-07-12 10:29] LABS: BASO % 0.8 % (0-2.0); HEMATOCRIT 26.8 % (32.4-45.2); HEMOGLOBIN 8.7 GM/dL (10.7-15.3); LYMPH % 33.8 % (8-40); MCH 28.7 pg (25.7-33.7); MCHC 32.4 g/dl (32.0-36.0); MEAN CELL VOLUME 88.6 fl (80-96); MEAN PLT VOLUME 9.4 fl (7.5-11.1); MONO % 8.8 % (3.8-10.2); NEUT % 53.6 % (42.8-82.8); PLATELET COUNT 297 10^3/uL (134-434); RBC 3.03 M/mm3 (3.60-5.2); RDW 13.1 % (11.6-15.6); WHITE BLOOD COUNT 8.1 K/mm3 (4.0-10.0)
[2023-07-12] MEDS ORDERED: oxyCODONE HCL 5 MG TABLET PO PRN (14:55)
[2023-07-12] MEDS ORDERED: HYDROmorphone HCl 2 MG/ML VIAL IVPB ONE (15:30)
[2023-07-12] MEDS: clonazePAM 0.5 MG TABLET PO SCH ×2 (15:40→21:11)
[2023-07-12] MEDS ORDERED: REFRIGERATED ANITBIOTICS ONE (18:17)
[2023-07-12] MEDS: ACETAMINOPHEN 1000 MG/100 ML BAG IVPB SCH ×2 (19:43→21:11)
[2023-07-13] MEDS: CEFAZOLIN SODIUM 2 GM in DEXTROSE 5%-WATER 100 ML IVPB SCH ×4 (00:06→23:38)
[2023-07-13] MEDS: oxyCODONE HCL 5 MG TABLET PO PRN ×4 (01:10→18:32)
[2023-07-13 08:58] LABS: BILIRUBIN,TOTAL 0.2 mg/dl (0.2-1); BLOOD UREA NITROGEN 5.2 mg/dl (7-18); CALCIUM 7.9 mg/dl (8.5-10.1); CREATININE 0.4 mg/dl (0.6-1.3); POTASSIUM 3.9 mmol/L (3.5-5.1); SGOT/AST 13.7 U/L (15-37); TOT PROT 4.7 g/dl (6.4-8.2)
[2023-07-13] MEDS: CELECOXIB 200 MG CAPSULE PO SCH ×2 (09:02→21:36)
[2023-07-13] MEDS: GABAPENTIN 300 MG CAPSULE PO SCH (09:02)
[2023-07-13] MEDS: clonazePAM 0.5 MG TABLET PO SCH ×2 (09:02→21:35)
[2023-07-13] MEDS: PANTOPRAZOLE 40 MG TABLET PO SCH (09:02)
[2023-07-13] MEDS: ASPIRIN COATED 81 MG TABLET.EC PO SCH ×2 (09:02→21:34)
[2023-07-13] MEDS: SENNOSIDES/DOCUSATE COMBO (SENNA PLUS) TABLET (UD) PO SCH ×2 (09:02→21:36)
[2023-07-13] MEDS ORDERED: ZOLPIDEM TARTRATE 5 MG TABLET PO PRN (10:28)
[2023-07-13 10:48] LABS: EOS % 5.7 % (0-4.5); HEMOGLOBIN 7.9 GM/dL (10.7-15.3); LYMPH % 30.5 % (8-40); MEAN CELL VOLUME 87.7 fl (80-96); MEAN PLT VOLUME 9.3 fl (7.5-11.1); MONO % 9.2 % (3.8-10.2); NEUT % 53.6 % (42.8-82.8); PLATELET COUNT 254 10^3/uL (134-434); RBC 2.74 M/mm3 (3.60-5.2); RDW 13.4 % (11.6-15.6); WHITE BLOOD COUNT 5.8 K/mm3 (4.0-10.0)
[2023-07-13] MEDS: HYDROmorphone HCl 2 MG/ML VIAL IVPB PRN (13:23)
[2023-07-13] MEDS: ACETAMINOPHEN 1000 MG/100 ML BAG IVPB SCH ×2 (13:26→19:42)
[2023-07-14] MEDS: HYDROmorphone HCl 2 MG/ML VIAL IVPB PRN ×4 (01:01→21:07)
[2023-07-14] MEDS: CEFAZOLIN SODIUM 2 GM in DEXTROSE 5%-WATER 100 ML IVPB SCH ×2 (08:21→16:04)
[2023-07-14] MEDS: PANTOPRAZOLE 40 MG TABLET PO SCH (09:49)
[2023-07-14] MEDS: ASPIRIN COATED 81 MG TABLET.EC PO SCH ×2 (09:49→21:07)
[2023-07-14] MEDS: CELECOXIB 200 MG CAPSULE PO SCH ×2 (09:49→21:07)
[2023-07-14] MEDS: clonazePAM 0.5 MG TABLET PO SCH (09:49)
[2023-07-14] MEDS: SENNOSIDES/DOCUSATE COMBO (SENNA PLUS) TABLET (UD) PO SCH ×2 (11:23→21:07)
[2023-07-14] MEDS: oxyCODONE HCL 5 MG TABLET PO PRN (11:27)
[2023-07-14] MEDS ORDERED: DEXTROSE 5%-WATER 100 ML IVPB ONE (13:04)
[2023-07-14] MEDS ORDERED: REFRIGERATED ANITBIOTICS ONE (13:05)
[2023-07-15] MEDS: CEFAZOLIN SODIUM 2 GM in DEXTROSE 5%-WATER 100 ML IVPB SCH ×2 (00:51→08:36)
[2023-07-15] MEDS: clonazePAM 0.5 MG TABLET PO SCH ×3 (01:30→22:15)
[2023-07-15] MEDS: oxyCODONE HCL 5 MG TABLET PO PRN ×4 (01:40→22:17)
[2023-07-15] MEDS: PANTOPRAZOLE 40 MG TABLET PO SCH (09:40)
[2023-07-15 10:09] LABS: BILIRUBIN,TOTAL 0.3 mg/dl (0.2-1); BLOOD UREA NITROGEN 3.4 mg/dl (7-18); CALCIUM 8.3 mg/dl (8.5-10.1); CREATININE 0.4 mg/dl (0.6-1.3); SGOT/AST 12.4 U/L (15-37); SGPT/ALT 5.5 U/L (7-52); TOT PROT 4.6 g/dl (6.4-8.2)
[2023-07-15 10:14] VITALS: RESP 18
[2023-07-15 10:27] LABS: BASO % 2.2 % (0-2.0); EOS % 7.3 % (0-4.5); HEMATOCRIT 23.5 % (32.4-45.2); HEMOGLOBIN 7.7 GM/dL (10.7-15.3); LYMPH % 41.1 % (8-40); MCH 29.1 pg (25.7-33.7); MEAN CELL VOLUME 88.4 fl (80-96); MONO % 10.4 % (3.8-10.2); PLATELET COUNT 282 10^3/uL (134-434); RBC 2.66 M/mm3 (3.60-5.2); RDW 13.7 % (11.6-15.6); WHITE BLOOD COUNT 4.1 K/mm3 (4.0-10.0)
[2023-07-15] MEDS ORDERED: IRON SUCROSE INJECTION 200 MG in SODIUM CHLORIDE 100 ML IVPB ONE (10:30)
[2023-07-15] MEDS: ENOXAPARIN NA (PORCINE) 40 MG/0.4 ML DISP.SYRIN SQ SCH (10:47)
[2023-07-15] MEDS: SENNOSIDES/DOCUSATE COMBO (SENNA PLUS) TABLET (UD) PO SCH ×2 (11:01→22:15)
[2023-07-15] MEDS: HYDROmorphone HCl 2 MG/ML VIAL IVPB PRN ×2 (14:29→18:54)
[2023-07-15] MEDS: FERROUS SO4 325 MG TABLET (FP) PO SCH (22:15)
[2023-07-16] MEDS: oxyCODONE HCL 5 MG TABLET PO PRN (02:15)
[2023-07-16] MEDS: HYDROmorphone HCl 2 MG/ML VIAL IVPB PRN (06:06)
[2023-07-16] MEDS ORDERED: HYDROmorphone HCL 2 MG TABLET PO PRN ×2 (07:04→12:01)
[2023-07-16] MEDS: ACETAMINOPHEN 325 MG TABLET (FP) PO SCH ×2 (08:05→12:42)
[2023-07-16 09:02] LABS: ANION GAP 8 MMOL/L (8-16); CALCIUM 8.5 mg/dl (8.5-10.1); CHLORIDE 107 mmol/L (98-107); CO2 28 mmol/L (21-32); CREATININE 0.4 mg/dl (0.6-1.3); GLUCOSE,RANDOM 103 mg/dl (74-106); POTASSIUM 3.8 mmol/L (3.5-5.1); SODIUM 143 mmol/L (136-145)
[2023-07-16 09:09] LABS: BLOOD UREA NITROGEN 2.9 mg/dl (7-18)
[2023-07-16] MEDS: SENNOSIDES/DOCUSATE COMBO (SENNA PLUS) TABLET (UD) PO SCH (09:19)
[2023-07-16] MEDS: FERROUS SO4 325 MG TABLET (FP) PO SCH (09:19)
[2023-07-16] MEDS: clonazePAM 0.5 MG TABLET PO SCH (09:20)
[2023-07-16] MEDS: PANTOPRAZOLE 40 MG TABLET PO SCH (09:20)
[2023-07-16] MEDS: ENOXAPARIN NA (PORCINE) 40 MG/0.4 ML DISP.SYRIN SQ SCH (09:20)
[2023-07-16 11:53] LABS: BASO % 1.5 % (0-2.0); EOS % 3.6 % (0-4.5); HEMATOCRIT 27.1 % (32.4-45.2); HEMOGLOBIN 8.9 GM/dL (10.7-15.3); LYMPH % 31.3 % (8-40); MCH 29.1 pg (25.7-33.7); MCHC 32.7 g/dl (32.0-36.0); MEAN CELL VOLUME 88.9 fl (80-96); MEAN PLT VOLUME 8.8 fl (7.5-11.1); MONO % 12.7 % (3.8-10.2); NEUT % 50.9 % (42.8-82.8); PLATELET COUNT 338 10^3/uL (134-434); RBC 3.05 M/mm3 (3.60-5.2); RDW 13.7 % (11.6-15.6); WHITE BLOOD COUNT 4.9 K/mm3 (4.0-10.0)
[2023-07-16 14:20] VITALS: BP 140/86; PULSE 88; TEMP 98.9
[2023-07-16 17:02] LABS: IRON SERUM 204 ug/dL (50-175); TOTAL IRON BINDING CAPACITY 310 ug/dL (250-450)
== END 2023-07-16 14:20 | disposition home or self-care (01) | DRG 908 ==
LOC: FER 19:43 → INTOOBSV 22:55 → FM/S 22:55 → UNDOADMOB 22:55 → FM/S 22:59 → OBSVTOIN 07-10 16:19
PROVIDERS: ADMIT Internal Medicine; ATTEND Internal Medicine
PROC: 0SPC09Z Removal of Liner from Right Knee Joint, Open Approach (ICD-10-PCS; 2023-07-10)
PROC: 0SUV09Z Supplement Right Knee Joint, Tibial Surface with Liner, Open Approach (ICD-10-PCS; 2023-07-10)
PROC: 0Y9F00Z Drainage of Right Knee Region with Drainage Device, Open Approach (ICD-10-PCS; principal; 2023-07-10 13:30)
DX: M96.840 Postprocedural hematoma of a musculoskeletal structure following a musculoskeletal system procedure (principal); D62 Acute posthemorrhagic anemia; Y83.8 Other surgical procedures as the cause of abnormal reaction of the patient, or of later complication, without mention of misadventure at the time of the procedure; I10 Essential (primary) hypertension; F41.8 Other specified anxiety disorders; G43.909 Migraine, unspecified, not intractable, without status migrainosus; Z96.651 Presence of right artificial knee joint; G47.00 Insomnia, unspecified; G89.29 Other chronic pain; Z98.84 Bariatric surgery status
CPT/HCPCS: 0241U-QW; 36415; 73560-TC-RT-FY; 80048; 80053; 81003; 81015; 82728; 83540; 83550; 84703; 85025; 85027; 85610; 85651; 86140; 86850; 86900; 86901; 87070; 87102; 87116; 87205; 87206; 87210; 93005; 94760; 97010-GP; 97116-GP; 97162-GP; 99285-25; C1776; G0378; J1756